=== PATIENT | female | born 1990 | race Caucasian/White ===

== ENCOUNTER 2017-08-23 20:56 | Emergency (ER) | payer MEDICAID ==
[~2017-08-23] VITALS: Ht 157.5 cm; Wt 54.0 kg
[2017-08-23 21:00] VITALS: Ht 157.5 cm; Wt 54.0 kg
[2017-08-23 22:03] LABS: BASOPHIL % 0.7 % (0-2); PLATELET COUNT 297 x10^3mcL (130-400); RED CELL DISTRIBUTION WIDTH 13.8 % (11.5-14.5)
[2017-08-23 22:23] LABS: CALCIUM 9.7 mg/dL (8.5-10.1); CARBON DIOXIDE 22.2 mmol/L (21-32); CHLORIDE SERUM 98 mmol/L (98-107); CREATININE SERUM 0.8 mg/dL (0.6-1.0); GFR1 > 60 mL/min; GLUCOSE SERUM 107 mg/dL (74-106); POTASSIUM SERUM 3.9 mmol/L (3.5-5.1); SODIUM SERUM 136 mmol/L (136-145)
[2017-08-23 22:36] LABS: ALBUMIN 4.6 g/dL (3.4-5.0); ALKALINE PHOSPHATASE 55 U/L (46-116); ALT/SGPT 15 U/L (14-59); AST/SGOT 10 U/L (15-37); BILIRUBIN TOTAL 1.8 mg/dL (0.20-1.00)
[2017-08-23 23:40] VITALS: BP 117/65
== END 2017-08-23 23:41 | disposition short-term general hospital (02) ==
LOC: ED 20:56
PROVIDERS: Emergency Medicine
DX: D33.3 Benign neoplasm of cranial nerves (principal)
CPT/HCPCS: J0696; J1200; J2765; J7040

== ENCOUNTER 2018-08-30 13:27 | Emergency (ER) | payer BC ==
[~2018-08-30] VITALS: Ht 157.5 cm; Wt 55.5 kg
[2018-08-30 13:53] VITALS: Ht 157.5 cm; Wt 55.5 kg
[2018-08-30 16:18] VITALS: BP 101/60
== END 2018-08-30 16:18 | disposition home or self-care (01) ==
LOC: ED 13:27
DX: G44.209 Tension-type headache, unspecified, not intractable (principal); Z88.8 Allergy status to other drugs, medicaments and biological substances
CPT/HCPCS: J0780; J3010

== ENCOUNTER 2019-02-28 05:42 | Emergency (ER) | payer BC ==
[~2019-02-28] VITALS: Ht 157.5 cm; Wt 54.4 kg
[2019-02-28 05:43] VITALS: Ht 157.5 cm; Wt 54.4 kg
[2019-02-28 07:15] VITALS: BP 101/68
== END 2019-02-28 07:15 | disposition home or self-care (01) ==
LOC: ED 05:42
DX: G89.29 Other chronic pain (principal); R51 Headache; Z88.8 Allergy status to other drugs, medicaments and biological substances
CPT/HCPCS: J3010; Q0162

== ENCOUNTER 2019-06-08 15:16 | Inpatient (IN) | payer BC ==
[~2019-06-08] VITALS: Ht 157.5 cm; Wt 55.0 kg
[2019-06-08 15:33] VITALS: Ht 157.5 cm; Wt 55.0 kg
[2019-06-08 16:34] LABS: BASOPHIL % 0.5 % (0-2); PLATELET COUNT 250 x10^3mcL (130-400); RED CELL DISTRIBUTION WIDTH 13.5 % (11.5-14.5)
[2019-06-08 16:58] LABS: ALBUMIN 4.5 g/dL (3.4-5.0); ALKALINE PHOSPHATASE 62 U/L (46-116); ALT/SGPT 13 U/L (14-59); AST/SGOT 7 U/L (15-37); BILIRUBIN TOTAL 1.08 mg/dL (0.20-1.00); CALCIUM 9.1 mg/dL (8.5-10.1); CARBON DIOXIDE 27.3 mmol/L (21-32); CREATININE SERUM 0.6 mg/dL (0.6-1.0); GFR1 > 60 mL/min; GLUCOSE SERUM 85 mg/dL (74-106)
[2019-06-08 17:03] LABS: TOTAL PROTEIN, SERUM 8.4 g/dL (6.4-8.2)
[2019-06-08 17:08] LABS: CHLORIDE SERUM 101 mmol/L (98-107); POTASSIUM SERUM 3.9 mmol/L (3.5-5.1); SODIUM SERUM 137 mmol/L (136-145)
[2019-06-08 17:09] LABS: C REACTIVE PROTEIN < 0.2 mg/dL (<=0.9)
[2019-06-08 18:08] LABS: ERYTHROCYTE SED RATE 13 mm/hr (0-20)
[2019-06-08] MEDS ORDERED: SOMA350 MG (19:23)
[2019-06-08] MEDS ORDERED: METHOCARBAMOL500 MG (19:23)
[2019-06-08] MEDS ORDERED: GABAPENTIN100 M2 (19:24)
[2019-06-09] VITALS (7 sets, daily range): BP systolic 14–141; BP diastolic 51–67
[2019-06-09 07:05] LABS: BASOPHIL % 0.8 % (0-2); PLATELET COUNT 236 x10^3mcL (130-400); RED CELL DISTRIBUTION WIDTH 13.8 % (11.5-14.5)
[2019-06-09 07:42] LABS: CALCIUM 8.8 mg/dL (8.5-10.1); CARBON DIOXIDE 27.5 mmol/L (21-32); CHLORIDE SERUM 103 mmol/L (98-107); CREATININE SERUM 0.8 mg/dL (0.6-1.0); GFR1 > 60 mL/min; GLUCOSE SERUM 81 mg/dL (74-106); MAGNESIUM 2.2 mg/dL (1.8-2.4); PHOSPHOROUS 5.2 mg/dL (2.5-4.9); POTASSIUM SERUM 3.7 mmol/L (3.5-5.1); SODIUM SERUM 140 mmol/L (136-145)
[2019-06-09 08:40] LABS: CHOLESTEROL/HDL RATIO 2.2
[2019-06-09 09:11] LABS: BILIRUBIN DIRECT 0.29 mg/dL (0.0-0.2); BILIRUBIN TOTAL 1.35 mg/dL (0.20-1.00); TOTAL PROTEIN, SERUM 7.3 g/dL (6.4-8.2)
[2019-06-09] MEDS ORDERED: IBUPROFEN600 MG PO (17:21)
[2019-06-09] MEDS ORDERED: ASPIR LOW81 MG PO (17:42)
== END 2019-06-09 18:30 | disposition home or self-care (01) | DRG 47 ==
LOC: ED 15:16 → MU 18:39 → DU 23:45
PROVIDERS: Emergency Medicine; ADMIT General Practice
DX: G45.9 Transient cerebral ischemic attack, unspecified (principal); E83.39 Other disorders of phosphorus metabolism; M54.2 Cervicalgia; M54.6 Pain in thoracic spine; R20.0 Anesthesia of skin; R29.810 Facial weakness; E80.6 Other disorders of bilirubin metabolism; Z68.21 Body mass index [BMI] 21.0-21.9, adult
CPT/HCPCS: 92526-GN; 92610-GN; G0378; J0780; J1200; J2270; Q9967

== ENCOUNTER 2020-04-06 18:52 | Emergency (ER) | payer BC ==
[~2020-04-06] VITALS: Ht 157.5 cm; Wt 51.3 kg
[~2020-04-06 18:52] MED LIST: ASPIR LOW81 MG PO; GABAPENTIN100 M2; IBUPROFEN600 MG PO; METHOCARBAMOL500 MG; SOMA350 MG
[2020-04-06 18:59] VITALS: BP 139/71; Ht 157.5 cm; Wt 51.3 kg
== END 2020-04-06 20:50 | disposition home or self-care (01) ==
LOC: ED 18:52
DX: M54.2 Cervicalgia (principal); G89.29 Other chronic pain; Z88.8 Allergy status to other drugs, medicaments and biological substances
CPT/HCPCS: J3010; Q0162

== ENCOUNTER 2020-05-30 14:48 | Emergency (ER) | payer BC ==
[~2020-05-30] VITALS: Ht 157.5 cm; Wt 51.7 kg
[2020-05-30 15:51] VITALS: Ht 157.5 cm; Wt 51.7 kg
[2020-05-30 20:16] VITALS: BP 112/68
== END 2020-05-30 20:16 | disposition home or self-care (01) ==
LOC: ED 14:48
DX: G44.209 Tension-type headache, unspecified, not intractable (principal); G43.909 Migraine, unspecified, not intractable, without status migrainosus; G89.29 Other chronic pain; M54.2 Cervicalgia; Z88.8 Allergy status to other drugs, medicaments and biological substances
CPT/HCPCS: J1885